=== PATIENT | male | born 1940 | race Caucasian/White ===

== ENCOUNTER 2023-01-02 17:50 | Emergency (ER) | payer MEDICARE ==
[~2023-01-02] VITALS: Ht 182.9 cm; Wt 108.0 kg
[2023-01-02 18:07] VITALS: BP 165/70; PULSE 96; RESP 18
[2023-01-02] MEDS ORDERED: AMOX1TAB16 PO (18:12)
[2023-01-02] MEDS ORDERED: TETANUS/DIPHTHERIA TOXOID [ADULT] 0.5 ML VIAL IM ONE (18:30)
== END 2023-01-02 19:09 | disposition home or self-care (01) ==
LOC: EDH 17:50
DX: S61.551A Open bite of right wrist, initial encounter (principal); W54.0XXA Bitten by dog, initial encounter; Y93.89 Activity, other specified; Y92.89 Other specified places as the place of occurrence of the external cause; Y99.8 Other external cause status
CPT/HCPCS: 90471; 90714; 96372

== ENCOUNTER 2024-09-28 06:12 | Day surgery (SDC) | payer OTHER ==
[~2024-09-28] VITALS: Ht 182.9 cm; Wt 88.9 kg
[2024-09-28] VITALS (10 sets, daily range): BP systolic 97–135; BP diastolic 44–74; PULSE 71–83; RESP 15–18; TEMP 96.9–97.5
[~2024-09-28 06:12] MED LIST: ADV250 IH; AMOX1TAB16 PO; BENZ-226 PO; BENZ200C53 PO; DUTA.5 PO; ENOX40DI8 SQ; ERGO500093 PO; FERR210T PO; FOLI0.8T22 PO; METO-408 PO; OMEP20CA12 PO; TAMS-55 PO
[2024-09-28] MEDS ORDERED: FOLI0.8T22 PO (06:37)
[2024-09-28] MEDS ORDERED: FLUT15.845 NS (06:37)
[2024-09-28] MEDS ORDERED: ALBU18HF7 IH (06:37)
[2024-09-28] MEDS ORDERED: ALBU2.5V2 NEB (06:38)
[2024-09-28] MEDS: 0.9%NACL 1000ML 1,000 ML IV ONE (06:39)
[2024-09-28] MEDS ORDERED: LIDOCAINE HCL 1% 20 ML VIAL ONE (07:14)
--- NOTE | 2024-09-28 09:01 | NUR ---
Full and complete discharge instructions given to Patient and Family both verbally and in writing. Explained GI procedure precautions and follow up. All questions answered. PIV removed with catheter tip intact. Home with Family W/C to POV.
== END 2024-09-28 09:03 | disposition home or self-care (01) ==
LOC: ENDO 06:12 → DAH 06:12 → ENDO 09:03
PROVIDERS: ATTEND Internal Medicine Gastroenterology
DX: D50.9 Iron deficiency anemia, unspecified (principal); K62.1 Rectal polyp; K57.30 Diverticulosis of large intestine without perforation or abscess without bleeding; K55.011 Focal (segmental) acute (reversible) ischemia of small intestine; J44.9 Chronic obstructive pulmonary disease, unspecified; K29.70 Gastritis, unspecified, without bleeding; Z86.0100 Personal history of colon polyps, unspecified; Z79.899 Other long term (current) drug therapy
CPT/HCPCS: 45380; J7030; J2704; A4620; A4215; J3490

== ENCOUNTER 2025-01-05 15:42 | Emergency (ER) | payer OTHER ==
[~2025-01-05] VITALS: Ht 182.9 cm; Wt 88.5 kg
[~2025-01-05 15:42] MED LIST changes: -ADV250 IH; +ALBU18HF7 IH; +ALBU2.5V2 NEB; -AMOX1TAB16 PO; -BENZ-226 PO; -BENZ200C53 PO; -ENOX40DI8 SQ; +FLUT15.845 NS
--- NOTE | 2025-01-05 15:53 | ERN ---
ED Note History of Present Illness Stated Complaint: ABNORMAL LABS Chief Complaint: Abnormal Labs Time Seen by MD: 15:47 Dictation: PATIENT IS A 84-YEAR-OLD MALE COMING IN TODAY FROM HOME WITH HIS WITH COMPLAINTS OF GB W. HE STATES HE HAS A HEMODIALYSIS PATIENT OF DR. LUIGI DURAN AND HAD BLOOD DRAWN YESTERDAY. SHE CALLED HIM TODAY TO TOLD HIM TO GO TO THE EMERGENCY ROOM THAT HIS HEMOGLOBIN WAS IN THE LOW 5S'S. HE STATES HE HAS BEEN HAVING MILD SHORTNESS A BREATH OVER THE LAST SEVERAL DAYS DESPITE HAVING HEMODIALYSIS YESTERDAY. STATES HE HAD BEEN HAVING BLACK STOOLS HOWEVER HE IS ON IRON SUPPLEMENTATION FOR HIS ANEMIA ON-CALL. CHEST PAIN NO BACK PAIN. Allergies: Coded Allergies: No Known Drug Allergies (Unverified Allergy, Unknown, 01/02/23) Home Meds Reported Medications Albuterol Sulfate (Albuterol Sulfate) 2.5 Mg/3 Ml (0.083 %) Vial.neb, 1 VIAL NEB Q6HPRN PRN for wheezing, #150 ML 0 Refills 09/28/24 Albuterol Sulfate (Ventolin Hfa) 90 Mcg Hfa.aer.ad, 2 PUFF IH Q6HPRN PRN for wheezing for 30 Days, #18 GM 0 Refills 09/28/24 Fluticasone Propionate (Fluticasone Propionate) 50 Mcg/Actuation [place].susp, 2 SPRAY NS BID, #16 GM 0 Refills 09/28/24 Folic Acid/Vitamin B Comp W-C (Ruth-Keshawn Tablet) 0.8 Mg Tablet, 1 TAB PO DAILY for 30 Days, #30 TAB 0 Refills 09/28/24 Omeprazole (Omeprazole) 20 Mg Capsule., 1 CAP PO DAILYBKFST for 30 Days, #30 CAP 0 Refills 08/16/24 Ergocalciferol (Vitamin D2) (Vitamin D2) 1,250 Mcg (95681 Unit) Capsule, 1 CAP PO QWEEK for 28 Days, #4 CAP 0 Refills 08/16/24 Tamsulosin HCl (Flomax) 0.4 Mg Cap.er.24h, 0.4 MG PO DAILYCOLETTE, UCHE. 08/16/24 Metoprolol Succinate (Metoprolol Succinate) 25 Mg Tab.er.24h, 1 TAB PO DAILY for 30 Days, #30 TAB 0 Refills 08/16/24 Dutasteride (Avodart) 0.5 Mg Cap, 0.5 MG PO DAILY, CAP 08/16/24 Ferric Citrate (Ferric Citrate) 210 Mg Iron Tablet, 2 TAB PO TIDMEALS for 30 Days, #180 TAB 0 Refills 08/16/24 Past Medical History Past Medical History: A-Fib, Anemia, COPD, High Cholesterol, Heart Disease, Hypertension, Pneumonia, Renal Failure Additional Past Medical Hx: LEUKEMIA Surgical History: Appendectomy RN Note Reviewed/Agreed w/PFSH: Yes Review of System Dictation CONSTITUTIONAL: NEGATIVE EXCEPT FOR HPI GB W HEAD/FACE: NEGATIVE EXCEPT FOR HPI EENT: NEGATIVE EXCEPT FOR HPI RESPIRATORY: NEGATIVE EXCEPT FOR HPI SHORTNESS A BREATH GASTROINTESTINAL/ABDOMINAL: NEGATIVE EXCEPT FOR HPI GENITOURINARY: NEGATIVE EXCEPT FOR HPI MUSCULOSKELETAL: NEGATIVE EXCEPT FOR HPI INTEGUMENTARY: NEGATIVE EXCEPT FOR HPI NEUROLOGICAL/PSYCH: NEGATIVE EXCEPT FOR HPI HEMATOLOGIC/LYMPHATIC: NEGATIVE EXCEPT FOR HPI ALL SYSTEMS NEGATIVE, EXCEPT NOTED ABOVE. 13 POINT REVIEW OF SYSTEMS ASSESSED AND ALL NEGATIVE EXCEPT FOR ABOVE. Initial Vital Sign VS Vital Signs Date Time Temp Pulse Resp B/P (MAP) Pulse Ox O2 Delivery O2 Flow Rate FiO2 01/05/25 15:44 97.7 90 18 121/53 98 Room Air 0 01/05/25 16:20 21 Physical Exam Dictation VITAL SIGNS REVIEWED GENERAL APPEARANCE: ALERT, ORIENTED X 3, NO ACUTE DISTRESS, WELL DEVELOPED, NOURISHED. HEAD AND FACE: NON-TRAUMATIC. EYES: PERRL, PINK CONJUNCTIVAS, EYELID NO TRAUMA, ANTERIOR CHAMBER WITH ARCUS SENILIS. EARS: PINNAS INTACT AND NO SIGNS OF TRAUMA OR ERYTHEMA EAR CANALS CLEAR AND NO DISCHARGE TM NO ERYTHEMA NOSE: NO DISCHARGE, NO BLEEDING. OROPHARYNX: MOUTH NORMAL, PALE MUCOSA, PHARYNX CLEAR,NO ERYTHEMA, TONSILS NO EXUDATES, NO ABSCESSES NOTED, MUCOUS MEMBRANE MOIST NECK: SUPPLE, NON-TENDER, NO THYROMEGALY, NO MASSES, NO JVD, NO BRUITS BREAST:DEFERRED CHEST:NO TENDERNESS, NO CREPITUS, NO PARADOXICAL MOVEMENT, NO RETRACTIONS LUNGS:CLEAR, WELL-VENTILATED, SYMMETRIC, NO RALES, NO WHEEZING, NO RHONCHI, NO STRIDOR, GOOD BREATH SOUNDS BILATERALLY HEART: REGULAR RATE, REGULAR RHYTHM, NO MURMUR, NO GALLOPS VASCULAR: NO PERIPHERAL EDEMA, ABDOMEN: SOFT, POSITIVE BOWEL SOUNDS, NONDISTENDED, NO GUARDING, NONTENDER, NO REBOUND, NO MASSES NO HEPATOMEGALY, NO SPLENOMEGALY, NO MONTALVO'S SIGN, NO HERNIAS. RECTAL: DEFERRED GENITAL: DEFERRED NEUROLOGICAL: NORMAL SPEECH, MOTOR FUNCTION INTACT, SENSORY FUNCTION INTACT MUSCULOSKELETAL: NECK NONTENDER, FULL RANGE OF MOTION, BACK NONTENDER, FULL RANGE OF MOTION, EXTREMITIES: NONTENDER, FULL RANGE OF MOTION SKIN: COLOR PINK, DRY, NO TURGOR, NO RASH, NO LACERATIONS, NO ABRASIONS, NO CONTUSIONS. LYMPHATIC: DEFERRED Results (Laboratory/Radiology) Laboratory/Radiology Laboratory Tests Test 01/05/25 15:56 White Blood Count 13.1 K/uL (4.8-10.8) H Red Blood Count 3.27 MIL/uL (4.50-6.20) L Hemoglobin 10.9 g/dL (14.0-18.0) L Hematocrit 32.5 % (42-54) L Mean Corpuscular Volume 99.4 fL (79-99) H Mean Corpuscular Hemoglobin 33.3 pg (27.0-33.0) H Mean Corpuscular Hemoglobin Concent 33.5 g/dL (32.0-36.0) Red Cell Distribution Width 18.4 % (11.0-15.5) H Platelet Count 223 K/uL (130-400) Mean Platelet Volume 9.4 fL (7.5-10.5) Immature Granulocyte % (Auto) 0.5 % (0-1) Neutrophils (%) (Auto) 39.1 % (40.0-77.0) L Lymphocytes (%) (Auto) 50.0 % (21.0-51.0) Monocytes (%) (Auto) 7.5 % (3.0-13.0) Eosinophils (%) (Auto) 2.4 % (0.0-8.0) Basophils (%) (Auto) 0.5 % (0.0-5.0) Neutrophils # (Auto) 5.1 K/uL (1.8-7.7) Lymphocytes # (Auto) 6.6 K/uL (1.0-4.8) H Monocytes # (Auto) 1.0 K/uL (0.1-1.0) Eosinophils # (Auto) 0.31 K/uL (0.00-0.70) Basophils # (Auto) 0.06 K/uL (0.00-0.20) Absolute Immature Granulocyte (auto 0.06 K/uL (0-1) Segmented Neutrophils % 46 % (40-70) Band Neutrophils % 2 % (0-2) Lymphocytes % (Manual) 31 % (22-44) Monocytes % (Manual) 2 % (2-9) Eosinophils % (Manual) 5 % (1-6) Nucleated Red Blood Cells 0.0 % (0.0-0.19) Differential Comment MANUAL DIFFERENTIAL Reactive Lymphocytes 14 % (0-0) H White Cell Morphology Comment Platelet Morphology Comment Red Blood Cell Morphology See comments Prothrombin Time 10.2 SEC (9.6-11.6) Prothromb Time International Ratio 0.96 (0.85-1.15) Activated Partial Thromboplast Time 25.7 SEC (26.3-35.5) L Sodium Level 133 mmol/L (136-145) L Potassium Level 4.1 mmol/L (3.5-5.1) Chloride Level 94 mmol/L (101-111) L Carbon Dioxide Level 28 mmol/L (21-32) Blood Urea Nitrogen 46 mg/dL (7-18) H Creatinine 5.2 mg/dL (0.5-1.3) H Glomerular Filtration Rate Calc 10 mL/min (>90) Random Glucose 108 mg/dL (70-105) H Total Calcium 9.0 mg/dL (8.5-10.1) Troponin I High Sensitivity 8 ng/L (4-75) Labs Reviewed?: Yes ED Course ED Course Orders Procedure Category Date Status Time Type And Screen BBK 01/05/25 Complete 15:50 Cbc With Differential LAB 01/05/25 In Process 15:50 Troponin I High LAB 01/05/25 Complete Sensitivity 15:50 Occult Blood Stool LAB 01/05/25 Logged Single Only 15:50 12 Lead Ekg Tracing- EKG 01/05/25 Complete Technical 15:50 Basic Metabolic Panel LAB 01/05/25 Complete 15:50 Pt And Ptt LAB 01/05/25 Complete 16:00 Manual Differential LAB 01/05/25 In Process 15:56 Vital Signs Date Time Temp Pulse Resp B/P (MAP) Pulse Ox O2 Delivery O2 Flow Rate FiO2 01/05/25 16:20 97.7 77 18 133/61 96 Room Air* 0 21 01/05/25 15:44 97.7 90 18 121/53 98 Room Air 0 1655/HEMOGLOBIN IS 10.9 AND 32.5. PATIENT IS NOT WISH TO STAY IN THE HOSPITAL IF HE IS NOT ANEMIC AND DOES NOT NEED BLOOD. I ADVISED HIM I WOULD CALL DR. LUIGI DURAN TO SEE IF THERE WAS ANY OTHER CONCERN SHE HAD.1 1715/SPOKE WITH AYLA MCLAUGHLIN INJECTION MOLDING MACHINE TENDER FOR DR. DURAN REVIEWED THE HEMOGLOBIN OF 10.9 AND 32.5 HE SAID THAT IS OKAY TO DISPOSITION HOME PATIENT HOME Medical Decision Making MDM MDM: DIFFERENTIAL DIAGNOSIS: ANEMIA/ELECTROLYTE IMBALANCE/DEHYDRATION/ARRHYTHMIA RATIONALE: TESTS CONSIDERED AND ORDERED SECONDARY TO SHARED DECISION MAKING INCLUDE: LABS/EKG PREVIOUS OUTSIDE RECORDS REVIEWED: OLD ER VISITS. RISK OF COMPLICATION AND/OR MORBIDITY OR MORTALITY OF PATIENT MANAGEMENT: NONE MEDICATIONS-PER MEDICATION RECONCILIATION NEED FOR HOSPITALIZATION: PATIENT DOES NOT MEET CRITERIA FOR HOSPITALIZATION. NONE NEED FOR EMERGENCY MAJOR/MINOR SURGERY: NO THERE ARE NO SOCIAL CONCERNS WITH THIS PATIENT. PRESCRIPTION DRUG MANAGEMENT NONE PRESCRIPTIONS WILL INCLUDE SYMPTOMATIC CARE PATIENT'S PRIOR EXTERNAL MEDICAL RECORDS FROM OTHER ER VISITS WERE REVIEWED BY ME INDICATED. PRIOR TESTING AND RESULTS FROM PREVIOUS VISITS WERE REVIEWED. PRIOR TESTS WERE TAKEN INTO ACCOUNT WITH MEDICAL DECISION MAKING AND RESOURCE UTILIZATION, INDEPENDENT HISTORIAN/HISTORIANS WERE USED TO OBTAIN COMPLETE MEDICAL HISTORY. I INDEPENDENTLY INTERPRETED THE TEST THAT WERE PERFORMED, RESULTS WERE REVIEWED BY ME AND CONSIDERED FINDINGS ON RADIOLOGY IF ORDERED. MEDICAL MANAGEMENT AND EXAMINATION INTERPRETATION DISCUSSIONS WERE HAD BY ME WITH OTHER QUALIFIED HEALTHCARE PROFESSIONALS INDICATED FOR THE PATIENT'S CARE. DX & DISP Disposition: Discharge Departure Impression: Primary Impression: Anemia in chronic renal disease Additional Impressions: ESRD (end stage renal disease) on dialysis, Hyponatremia, Hypochloremia Condition: Stable Additional Instructions: FOLLOW-UP WITH PRIMARY CARE PROVIDER IN 1 TO 2 DAYS. TAKE MEDICATIONS DIRECTED HERE IN THE EMERGENCY ROOM. OKAY TO CONTINUE HOME MEDICATIONS UNLESS OTHERWISE DISCUSSED DURING YOUR VISIT IN THE EMERGENCY ROOM TODAY. RETURN TO YOUR NEAREST EMERGENCY ROOM IF SYMPTOMS WORSEN OR IF THERE IS NO IMPROVEMENT. CALL 911 IF YOU NEED IMMEDIATE ASSISTANCE. TAKE TYLENOL OR MOTRIN [id number] TER NEEDED AND IF NO CONTRAINDICATIONS ARE PRESENT. INCREASE ORAL HYDRATION. A WOUND CULTURE OR URINE CULTURE WAS ORDERED HERE IN THE EMERGENCY ROOM DEPARTMENT PLEASE FOLLOW-UP WITH PRIMARY CARE PROVIDER AND ADVISE THEM TO GET REPEAT PORTS FROM OUR FACILITY. IF YOU HAD ANY CHUY WRAP/SPLINTS THAT WERE APPLIED HERE, PLEASE DO NOT REMOVE THEM UNTIL YOU SEE YOUR PRIMARY CARE OR SP ECIALTY. DIET AND ACTIVITY TOLERATED. SEE YOUR PRIMARY CARE DOCTOR FOR FOLLOW UP Referrals: NATASHA YAO MD (PCP) Time of Disposition: 17:17 I have reviewed the case, and I agree with, Diagnosis and Plan AMOS GUERRIER INJECTION MOLDING MACHINE TENDER Jan 05, 2025 15:53
[2025-01-05 16:11] LABS: IMMATURE GRANULOCYTE ABSOLUTE 0.06 K/uL (0-1); NUCLEATED RED BLOOD CELLS 0.0 % (0.0-0.19); PLATELET COUNT (AUTO) 223 K/uL (130-400); RED BLOOD CELL COUNT(AUTO) 3.27 MIL/uL (4.50-6.20); RED CELL DISTRIBUTION WIDTH 18.4 % (11.0-15.5); WHITE BLOOD COUNT (AUTO) 13.1 K/uL (4.8-10.8)
--- NOTE | 2025-01-05 16:17 | EKG ---
[facility] Test Date: 2025-01-05 Test Time: 16:14:46 Pat Name: COMPA TUCKER Department: [facility] Room: Gender: M Corporate Events Director: [id number] : 1940 Requested By: AMOS GUERRIER Order Number: [id number] Reading MD: Jaime Smiley Measurements Intervals [place] Rate: 72 P: 48 MA: 228 QRS: 60 QRSD: 162 T: 25 QT: 429 QTc: 483 Interpretive Statements Sinus rhythm Sinus pause Prolonged MA interval Right bundle branch block Compared to ECG 08/16/2024 10:08:30 Sinus pause or arrest now present First degree AV block now present Ventricular premature complex(es) no longer present Electronically Signed On 01-05-2025 18:57:02 FOUNDER PRESIDENT AND CEO by Jaime Smiley Please click the below link to view image of tracing.
[2025-01-05 16:20] LABS: CREATININE 5.2 mg/dL (0.5-1.3); GLOMERULAR FILTR. RATE CALC 10.0 mL/min (>90); GLUCOSE,RANDOM 108.0 mg/dL (70-105); SODIUM SERUM 133.0 mmol/L (136-145); UREA NITROGEN, BLOOD 46.0 mg/dL (7-18)
[2025-01-05 16:22] LABS: INR 0.96 (0.85-1.15)
[2025-01-05 16:49] LABS: BAND NEUTROPHILS % (MANUAL) 2 % (0-2); EOSINOPHILS % (MANUAL) 5 % (1-6); LYMPHOCYTES % (MANUAL) 31 % (22-44); MAN.DIFF COMMENT-IMPRESSION MANUAL DIFFERENTIAL; MONOCYTES % (MANUAL) 2 % (2-9); REACTIVE LYMPHOCYTES 14 % (0-0); SEGMENTED NEUTROPHILS % 46 % (40-70)
[2025-01-05 17:30] VITALS: BP 128/53; PULSE 79; RESP 18; TEMP 97.7; O2SAT 95
== END 2025-01-05 17:44 | disposition home or self-care (01) ==
LOC: EDH 15:42
DX: I13.11 Hypertensive heart and chronic kidney disease without heart failure, with stage 5 chronic kidney disease, or end stage renal disease (principal); N18.6 End stage renal disease; D63.1 Anemia in chronic kidney disease; E87.1 Hypo-osmolality and hyponatremia; E87.8 Other disorders of electrolyte and fluid balance, not elsewhere classified; I48.91 Unspecified atrial fibrillation; J44.9 Chronic obstructive pulmonary disease, unspecified; E78.00 Pure hypercholesterolemia, unspecified; Z79.899 Other long term (current) drug therapy; Z87.01 Personal history of pneumonia (recurrent); Z85.6 Personal history of leukemia; Z90.49 Acquired absence of other specified parts of digestive tract; Z99.2 Dependence on renal dialysis
CPT/HCPCS: 36415; 80048; 84484; 85025; 85610; 85730; 86850; 86900; 86901; 93005; 99284